=== PATIENT | female | born 1985 | race Caucasian/White ===

== ENCOUNTER 2018-03-07 16:19 | Emergency (ER) | payer OTHER ==
[~2018-03-07] VITALS: Ht 170.2 cm; Wt 90.7 kg
[2018-03-07] MEDS ORDERED: BACTRIM DS TAB1 EACH PO (16:32)
[2018-03-07] MEDS ORDERED: TRAMADOL 50 MG50 MG PO (16:32)
[2018-03-07] MEDS ORDERED: ZANAFLEX2 M1 PO (16:32)
[2018-03-07] MEDS ORDERED: IBUPROFEN 800800 M1 PO (16:32)
[2018-03-07] MEDS ORDERED: KEFLEX500 M1 PO (16:47)
[2018-03-07] MEDS ORDERED: CLEOCIN HCL300 MG PO (16:47)
[2018-03-07 17:26] VITALS: BP 140/90
[2018-03-07] MEDS ORDERED: NORCO 5-325 TA1 EACH PO (17:26)
== END 2018-03-07 17:31 | disposition home or self-care (01) ==
LOC: M.ERS 16:19
DX: L05.01 Pilonidal cyst with abscess (principal)